=== PATIENT | female | born 1970 | race Caucasian/White ===

== ENCOUNTER 2020-08-20 10:55 | Outpatient (RCR) | payer OTHER, SELFPAY ==
[2020-08-20 11:15] VITALS: BP 110/66; PULSE 73
== END 2020-09-25 15:03 | disposition other institution (70) ==
LOC: HO.PT 10:55
PROVIDERS: Visit Provider Otolaryngology
DX: R42 Dizziness and giddiness (principal)
CPT/HCPCS: 95992; 97161